=== PATIENT | male | born 1960 | race Caucasian/White ===

== ENCOUNTER 2017-10-08 09:41 | Emergency (ER) | payer OTHER ==
[2017-10-08 09:41] VITALS: BMI 24.2
[2017-10-08] MEDS ORDERED: Sodium Chloride 0.9% 1,000 ML IV STA (10:29)
--- NOTE | 2017-10-08 10:44 | ED PDOC ---
Arrival/HPI - General Chief Complaint: Flu-like Symptoms Time Seen by Provider: 10/08/17 10:25 Historian: Patient - History of Present Illness Narrative History of Present Illness (Text): 10/08/17 10:41 56 y/o male, no pmh, nkda, c/o bodyache/sorethroat acute onset 2 days ago with coughing. aching throat pain, associated with coughing, no chest pain or shortness of breath, admits bodyache and joint pain, no urinary symptoms, no night sweat, no rash, no other medical or psychological complaints. Past Medical History - Provider Review Nursing Documentation Reviewed: Yes - Infectious Disease Hx of Infectious Diseases: None - Cardiac Hx Cardiac Disorders: No - Pulmonary Hx Respiratory Disorders: No - Neurological Hx Neurological Disorder: No - HEENT Hx HEENT Disorder: No - Renal Hx Renal Disorder: No - Endocrine/Metabolic Hx Endocrine Disorders: No - Hematological/Oncological Hx Blood Disorders: No - Integumentary Hx Dermatological Disorder: No - Musculoskeletal/Rheumatological Hx Musculoskeletal Disorders: No - Gastrointestinal Hx Gastrointestinal Disorders: No - Genitourinary/Gynecological Hx Genitourinary Disorders: No - Psychiatric Hx Psychophysiologic Disorder: No Hx Substance Use: No - Anesthesia Hx Anesthesia: No Hx Malignant Hyperthermia: No Family/Social History - Physician Review Nursing Documentation Reviewed: Yes Family/Social History: Unknown Family HX Smoking Status: Never Smoked Hx Alcohol Use: No Hx Substance Use: No Allergies/Home Meds Allergies/Adverse Reactions: Allergies No Known Allergies Allergy (Verified 10/08/17 09:57) Review of Systems - Review of Systems Constitutional: Fatigue, Fevers Eyes: absent: Vision Changes ENT: Sore Throat. absent: Hearing Changes, Rhinorrhea Respiratory: Cough. absent: SOB, Sputum, Wheezing Cardiovascular: absent: Chest Pain, Palpitations Gastrointestinal: absent: Abdominal Pain, Stool Changes, Diarrhea, Nausea, Vomiting Genitourinary Male: absent: Dysuria, Frequency Musculoskeletal: Myalgias. absent: Arthralgias, Back Pain Skin: absent: Rash, Pruritis Neurological: absent: Headache, Dizziness Hemo/Lymphatic: absent: Adenopathy Psychiatric: absent: Anxiety, Depression, Suicidal Ideation Physical Exam Vital Signs Reviewed: Yes Vital Signs Temp Pulse Resp BP Pulse Ox 10/08/17 12:26 98.6 F 73 16 117/71 97 10/08/17 10:43 102 F H 10/08/17 09:54 102.1 F H 82 18 126/77 99 10/08/17 09:41 102.1 F H 82 18 126/77 99 Temperature: Febrile Blood Pressure: Normal Pulse: Regular Respiratory Rate: Normal Appearance: Positive for: Well-Appearing, Non-Toxic, Comfortable Pain Distress: Moderate Mental Status: Positive for: Alert and Oriented X 3 - Systems Exam Head: Present: Atraumatic, Normocephalic Pupils: Present: PERRL Extroacular Muscles: Present: EOMI Conjunctiva: Present: Normal Ears: Present: NORMAL TM, Normal Canal. No: Erythema Mouth: Present: Moist Mucous Membranes Pharnyx: Present: Normal. No: ERYTHEMA, EXUDATE, TONSILS ENLARGED Nose (External): Present: Atraumatic. No: Abrasion, Contusion Nose (Internal): Present: Normal Inspection, No Active Bleeding. No: Rhinorrhea Neck: Present: Normal Range of Motion, Trachea Midline. No: Meningeal Signs, MIDLINE TENDERNESS, Paraspinal Tenderness, Lymphadenopathy Respiratory/Chest: Present: Clear to Auscultation, Good Air Exchange. No: Respiratory Distress, Accessory Muscle Use Cardiovascular: Present: Regular Rate and Rhythm, Normal S1, S2. No: Murmurs Abdomen: Present: Normal Bowel Sounds. No: Tenderness, Distention, Peritoneal Signs, Rebound, Guarding Back: Present: Normal Inspection Upper Extremity: Present: Normal Inspection. No: Cyanosis, Edema Lower Extremity: Present: Normal Inspection. No: Edema Neurological: Present: GCS=15, CN II-XII Intact, Speech Normal Skin: Present: Warm, Dry, Normal Color. No: Rashes Psychiatric: Present: Alert, Oriented x 3, Normal Insight, Normal Concentration Medical Decision Making ED Course and Treatment: 10/08/17 10:43 -labs/ua/rapid flu -cxr -IVF/tylenol/motrin -observe and reassess 10/08/17 13:05 -Labs are nonsignificant -Rapid flu is positive, tamiflu ordered -UA show no UTI -Chest xray show no active disease -Pt. feels completely well, eating and drinking well, request to be discharged home. -Discharge home with tamiflu, tessalon, tylenol, motrin, stay hydrated, bed rest , follow up with your own pmd within 2 days, return to the ER for any new or worsening signs or symptoms. - Lab Interpretations Lab Results: 10/08/17 10:55 10/08/17 10:55 Lab Results 10/08/17 11:23: Urine Color Yellow, Urine Appearance Clear, Urine pH 6.0, Ur Specific [place] 1.025, Urine Protein Negative, Urine Glucose (UA) Negative, Urine Ketones Trace H, Urine Blood Negative, Urine Nitrate Negative, Urine Bilirubin Negative, Urine Urobilinogen 0.2, Ur Leukocyte Esterase Negative 10/08/17 10:55: WBC 6.7, RBC 4.52, Hgb 13.3 L, Hct 40.2 L, MCV 88.9, MCH 29.4, MCHC 33.1, RDW 12.5, Plt Count 179, MPV 10.4, Gran % 66.6, Lymph % (Auto) 17.9 L , [place] % (Auto) 14.9 H, Eos % (Auto) 0.6 L, Baso % (Auto) 0.0, Gran # 4.43, Lymph # (Auto) 1.2, [place] # (Auto) 1.0 H, Eos # (Auto) 0.0, Baso # (Auto) 0.00 10/08/17 10:55: Sodium 144, Potassium 4.7, Chloride 103, Carbon Dioxide 29, Anion Gap 16, BUN 13, Creatinine 0.9, Est GFR ( Amer) > 60, Est GFR (Non- Af Amer) > 60, Random Glucose 95, Calcium 9.1, Total Bilirubin 0.4, AST 36, ALT 30, Alkaline Phosphatase 48, Total Protein 7.5, Albumin 4.2, Globulin 3.2, Albumin/Globulin Ratio 1.3 10/08/17 10:39: Influenza Typ A,B (EIA) Pos for influenza a H - RAD Interpretation Radiology Orders: 10/08/17 10:25 CHEST TWO VIEWS (PA/LAT) [RAD] Stat no active disease Hotel Attendant: Radiologist - Medication Orders Current Medication Orders: Discontinued Medications Acetaminophen (Tylenol 325mg Tab) 650 mg PO STAT STA Stop: 10/08/17 10:31 Last Admin: 10/08/17 10:43 Dose: 650 mg MAR Pain/Vitals Document 10/08/17 10:43 MS (Rec: 10/08/17 10:43 [facility] [place]-[id number]) Pain Reassessment Is This A Pain ReAssessment? No Sleep Is patient sleeping during reassessment? No Presence of Pain Presence of Pain Yes Pain Scale Used Pain Scale Used Numeric Location Pain Location Body Site Generalized Vitals Temperature (97.6 F-99.6 F) 102 F Temperature Source Oral Sodium Chloride (Sodium Chloride 0.9%) 1,000 mls @ 999 mls/hr IV .Q1H1M STA Stop: 10/08/17 11:29 Last Admin: 10/08/17 10:41 Dose: 999 mls/hr eMAR Start Stop Document 10/08/17 10:41 MS (Rec: 10/08/17 10:42 [id number]) Intravenous Solution Start Date 10/08/17 Start Time 10:42 End Date 10/08/17 End time 11:42 Total Infusion Time 60 Ibuprofen (Motrin Tab) 600 mg PO STAT STA Stop: 10/08/17 10:31 Last Admin: 10/08/17 10:43 Dose: 600 mg MAR Pain/Vitals Document 10/08/17 10:43 MS (Rec: 10/08/17 10:43 [facility] [place] [id number]) Pain Reassessment Is This A Pain ReAssessment? No Sleep Is patient sleeping during reassessment? 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 Disposition/Present on Arrival - Present on Arrival Any Indicators Present on Arrival: No History of DVT/PE: No History of Uncontrolled Diabetes: No Urinary Catheter: No History of Decub. Ulcer: No History Surgical Site Infection Following: None - Disposition Have Diagnosis and Disposition been Completed?: Yes Diagnosis: Influenza Disposition: HOME/ ROUTINE Disposition Time: 12:09 Patient Plan: Discharge Condition: IMPROVED Discharge Instructions (ExitCare): Flu, Adult (DC) Print Language: [place] Additional Instructions: -Discharge home with tamiflu, tessalon, tylenol, motrin, stay hydrated, bed rest , follow up with your own pmd within 2 days, return to the ER for any new or worsening signs or symptoms. Prescriptions: Acetaminophen [Tylenol 325mg tab] 2 tab PO QID PRN #30 tab PRN Reason: Other Benzonatate [Tessalon [place]] 100 mg PO TID PRN #30 sgl PRN Reason: Other Ibuprofen [Motrin Tab] 600 mg PO QID PRN #25 tab PRN Reason: Other Oseltamivir [Tamiflu] 75 mg PO BID #10 cap Referrals: Shiva Tomas, [Primary Care Provider] - Follow up with primary Forms: [facility] (Slovak), WORK NOTE
[2017-10-08 11:00] LABS: EOS % 0.6 % (1.5-5.0); GRAN # 4.43 (1.4-6.5); GRAN % 66.6 % (50.0-68.0); HEMOGLOBIN 13.3 g/dL (14.0-18.0); LYMPH # 1.2 (1.2-3.4); LYMPH % 17.9 % (22.0-35.0); MEAN CELL VOLUME 88.9 fl (80.0-105.0); MEAN CORPUSCULAR HEMOGLOBIN 29.4 pg (25.0-35.0); MEAN CORPUSCULAR HGB CONC 33.1 g/dl (31.0-37.0); MEAN PLATELET VOLUME 10.4 fl (7.0-11.0); MONO % 14.9 % (1.0-6.0); RBC 4.52 10^6/uL (3.5-6.1); RED CELL DISTRIBUTION WIDTH 12.5 % (11.5-14.5); WHITE BLOOD COUNT 6.7 10^3/ul (4.5-11.0)
[2017-10-08 11:08] LABS: ALB/GLOB RATIO 1.3 (1.1-1.8); ALBUMIN 4.2 g/dL (3.0-4.8); ALT/SGPT 30 U/L (7-56); AST/SGOT 36 U/L (17-59); BLOOD UREA NITROGEN 13 mg/dL (7-21); CALCIUM 9.1 mg/dL (8.4-10.5); GFR AFRICAN-AMERICAN > 60; GFR NON-AFRICAN AMERICAN > 60
[2017-10-08 11:38] LABS: URINE BILIRUBIN NEGATIVE (NEGATIVE); URINE BLOOD NEGATIVE (NEGATIVE); URINE GLUCOSE (UA) NEGATIVE (NEGATIVE); URINE LEUKOCYTE ESTERASE NEGATIVE Leu/uL (NEGATIVE); URINE NITRATE NEGATIVE (NEGATIVE); URINE PROTEIN NEGATIVE mg/dL (<30 mg/dL); URINE UROBILINOGEN 0.2 E.U./dL (<1 E.U./dL)
[2017-10-08 11:45] LABS: URINE APPEARANCE CLEAR (CLEAR); URINE COLOR YELLOW (YELLOW)
[2017-10-08 12:27] VITALS: BP 117/71; PULSE 73; RESP 16; TEMP 98.6; O2SAT 97
--- NOTE | 2017-10-08 14:08 | RAD ---
HISTORY: medical clearance COMPARISON: No prior. TECHNIQUE: Chest PA and lateral FINDINGS: LUNGS: No active pulmonary disease. PLEURA: No significant pleural effusion identified. No pneumothorax apparent. CARDIOVASCULAR: Normal. OSSEOUS STRUCTURES: No significant abnormalities. VISUALIZED UPPER ABDOMEN: Normal. OTHER FINDINGS: None. IMPRESSION: No active disease.
== END 2017-10-08 13:21 | disposition home or self-care (01) ==
LOC: ED 09:41
DX: J11.1 Influenza due to unidentified influenza virus with other respiratory manifestations (principal)
CPT/HCPCS: 71046; 80053; 81003; 85025; 87804; 96360; 99283; J7040